=== PATIENT | male | born 1955 | race Caucasian/White ===

== ENCOUNTER 2016-06-01 15:51 | Emergency (ER) | payer OTHER ==
[2016-06-01] MEDS ORDERED: DIPH,PERTUS(ACELL)TETVAC-LF 0.5 ML VIAL IM ONE (16:05)
[2016-06-01 16:07] VITALS: BP 149/88; PULSE 84; RESP 18
--- NOTE | 2016-06-01 16:14 | ED ---
General Adult HPI - General Chief complaint: Wound/Laceration Stated complaint: finger lac-[facility] Time Seen by Provider: 06/01/16 16:04 Source: patient, RN notes reviewed Mode of arrival: EMS Limitations: no limitations - History of Present Illness Initial comments: Patient 60-year-old male who presents emergency room today with chief complaint of injury to the right hand occurred just prior to arrival. 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 States that his hand extending slipped going into Lathe that was spinning a piece of metal. States it is right index finger causing laceration. He doesn't pain locally to the right index finger. He states unsure of his tetanus status. Denies any other complaints or associated symptoms. Patient denies any recent fever, chills, shortness of breath, chest pain, back pain, abdominal pain, nausea or vomiting, numbness or tingling, dysuria or hematuria, constipation or diarrhea, headaches or visual changes, or any other complaints. - Related Data Home Medications Medication Instructions Recorded Confirmed Ibuprofen [Motrin] 400 mg PO Q6HR PRN 01/08/16 06/01/16 Previous Rx's Medication Instructions Recorded Cephalexin [Keflex] 500 mg PO Q12HR 5 Days 06/01/16 Allergies Allergy/AdvReac Type Severity Reaction Status Date / Time No Known Allergies Allergy Verified 06/01/16 16:07 Review of Systems ROS Statement: Those systems with pertinent positive or pertinent negative responses have been documented in the HPI. ROS Other: All systems not noted in ROS Statement are negative. Past Medical History Past Medical History: No Reported History History of Any Multi-Drug Resistant Organisms: None Reported Past Surgical History: Appendectomy, Cholecystectomy, Orthopedic Surgery, Tonsillectomy Past Psychological History: No Psychological Hx Reported Smoking Status: Current every day smoker Past Alcohol Use History: None Reported Past Drug Use History: None Reported General Exam - General Exam Comments Initial Comments: General: The patient is awake and alert, in no distress, and does not appear acutely ill. Neck: The neck is supple, there is no tenderness or JVD. Cardiovascular: There is a regular rate and rhythm. No murmur, rub or gallop is appreciated. Respiratory: Lungs are clear to auscultation, respirations are non-labored, breath sounds are equal. No wheezes, stridor, rales, or rhonchi. Musculoskeletal: No obvious deformity. Patient shows good range of motion. Patient does have a laceration over the volar aspect of the right index finger. Small superficial lacerations to the lateral aspect of the proximal fourth. Both measuring less than 1 cm. Sensation intact pulses equal bilaterally 2+. Neurological: A&O x 3. CN II-XII intact, There are no obvious motor or sensory deficits. Coordination appears grossly intact. Speech is normal. Skin: Skin is warm and dry and no rashes or lesions are noted. Psychiatric: Normal mood and affect. Limitations: no limitations Course Vital Signs 06/01/16 16:04 Pulse Rate 84 Respiratory 18 Rate Blood Pressure 149/88 O2 Sat by Pulse 96 Oximetry Procedures - Procedures Initial comment: Patient does have a 1 cm linear laceration volar aspect of the right index finger. No active bleeding. Digit was anesthetized locally with 1% lidocaine at the head of the metacarpal. Area was irrigated heavily under pressure with normal saline. A total of 3 sutures were placed. 5-0 nylon used. Patient does have 3 other small superficial lacerations all measuring less than 0.5 cm that did not require any suturing on the right index finger. Medical Decision Making - Medical Decision Making Patient's x-rays reviewed and shows no sign of fracture dislocation. Results were discussed with patient. Patient's tetanus updated here in the emergency room. Disposition Clinical Impression: Laceration, Finger contusion Disposition: HOME SELF-CARE Condition: Good Instructions: Laceration (ED) Additional Instructions: Please use antibiotic as prescribed follow-up with the employee health. Please return if any symptoms increase worsen or for any other concerns. Please do not submerge your hand. Running water over the top is okay. Please watch for any signs of infection which may include increased pain, swelling, redness, fever or chills. Please return to emergency room in 7-10 days have sutures removed. Prescriptions: Cephalexin [Keflex] 500 mg PO Q12HR 5 Days Time of Disposition: 16:39
--- NOTE | 2016-06-01 16:29 | XR ---
EXAMINATION TYPE: XR hand complete RT DATE OF EXAM: 06/01/2016 4:23 PM CLINICAL HISTORY: Left hand pain after laceration injury worse over second digit. TECHNIQUE: Frontal, lateral and oblique images of the right hand are obtained. COMPARISON: None. FINDINGS: Osseous structures are somewhat demineralized. There is no acute fracture/dislocation evid ent in the right hand. The joint spaces in the right hand appear within normal limits. There is mild soft tissue swelling in the second digit centered at the PIP joint. IMPRESSION: There is no acute fracture or dislocation in the right hand.
== END 2016-06-01 17:21 | disposition home or self-care (01) ==
LOC: EC 15:51
DX: S61.210A Laceration without foreign body of right index finger without damage to nail, initial encounter (principal); F17.200 Nicotine dependence, unspecified, uncomplicated; W31.82XA Contact with other commercial machinery, initial encounter; Y99.0 Civilian activity done for income or pay; Z23 Encounter for immunization
CPT/HCPCS: 12001; 90471; 90715; 99283

== ENCOUNTER 2019-02-08 15:02 | Inpatient (IN) | payer OTHER ==
[2019-02-08] MEDS ORDERED: SODIUM CHLORIDE 0.9% 500 ML 500 ML IV STA (15:26)
[2019-02-08 16:07] LABS: Basophils # (A) 0.1 k/uL (0-0.2); Basophils % (A) 0 %; Eosinophils % (A) 0 %; HCT 45.1 % (39.0-53.0); HGB 15.3 gm/dL (13.0-17.5); Lymphocytes # (A) 4.5 k/uL (1.0-4.8); Lymphocytes % (A) 29 %; MCHC 33.9 g/dL (31.0-37.0); MCV 97.4 fL (80.0-100.0); Mean Platelet Volume 5.4; Monocytes # (A) 1.4 k/uL (0-1.0); Monocytes % (A) 9 %; Neutrophils # (A) 9.3 k/uL (1.3-7.7); Neutrophils % (A) 60 %; Platelet Count 282 k/uL (150-450); RBC 4.63 m/uL (4.30-5.90); RDW 12.3 % (11.5-15.5); WBC 15.5 k/uL (3.8-10.6)
[2019-02-08 16:16] LABS: ALT 20 U/L (21-72); AST 25 U/L (17-59); Acetaminophen <10.0 ug/mL; African American GFR (CKD) >90 (>60 ml/min/1.73 sqM); Alcohol <10 mg/dL; Alkaline Phosphatase 54 U/L (38-126); Anion Gap 6 mmol/L; Blood Urea Nitrogen 12 mg/dL (9-20); Calcium 9.4 mg/dL (8.4-10.2); Carbon Dioxide 26 mmol/L (22-30); Chloride 108 mmol/L (98-107); Creatine Kinase 226 U/L (55-170); Glucose 86 mg/dL (74-99); Potassium 4.1 mmol/L (3.5-5.1); Salicylate <1.0 mg/dL; Sodium 140 mmol/L (137-145); Total Bilirubin 0.6 mg/dL (0.2-1.3); Total Protein 6.3 g/dL (6.3-8.2)
--- NOTE | 2019-02-08 16:18 | XR ---
EXAMINATION TYPE: XR chest 1V portable DATE OF EXAM: 02/08/2019 COMPARISON: Chest x-ray January 08, 2016 HISTORY: Drug overdose of Xanax. TECHNIQUE: Single AP portable frontal upright view of the chest is obtained. FINDINGS: There is diminish inspiration with mild central vascular congestion. The cardiac silhouet te size is mildly enlarged. No suspicious peripheral focal airspace opacity, pleural effusion, or pne umothorax. The osseous structures are intact. Overlying EKG leads are noted. IMPRESSION: Correlate for CHF exacerbation as there is new mild cardiomegaly and mild central vascul ar congestion thought present. Findings may be exaggerated by diminished inspiration on current study .
--- NOTE | 2019-02-08 16:36 | CT ---
EXAMINATION TYPE: CT brain cspine wo con DATE OF EXAM: 02/08/2019 COMPARISON: CT brain January 08, 2016 HISTORY: Trauma with overdose, neck pain after fall injury. CT DLP: 1389.1 mGycm. Automated Exposure Control for Dose Reduction was Utilized. TECHNIQUE: CT scan of the head and cervical spine are performed without contrast. FINDINGS: There is no acute intracranial hemorrhage, mass effect, or midline shift identified. The ventricles and sulci are within normal limits in size for patient's age. The globes are intact and the visualized sinuses are clear. The calvarium is intact. Cervical spine is visualized in its entirety from C1 through upper thoracic levels and demonstrates l oss of normal cervical curvature without evidence of acute fracture or dislocation. Prevertebral sof t tissue appears within normal limits. The C1-C2 articulation is within normal limits on the coronal images. Vertebral body heights are maintained. Moderate disc space narrowing C5-C6 level. Mild disc space narrowing C4-C5 and C6-C7 levels. Posterior spur effaces anterior thecal sac C6-C7 level sagit diann image 37 and axial image 69 left paracentral location. Review of axial images shows moderate bila teral neural foraminal narrowing C4-C5 level due to uncovertebral and facet spurring and moderate kathy rowing at C6-C7 level on the left due to marginal spurring. Lung apices show no pneumothorax. IMPRESSION: 1. There is no acute fracture or dislocation evident in the cervical spine. 2. No acute intracranial hemorrhage or midline shift is seen.
--- NOTE | 2019-02-08 17:00 | ED ---
Overdose HPI - General Chief Complaint: Overdose Stated Complaint: Mental health Time Seen by Provider: 02/08/19 15:02 Source: patient, family, EMS, RN notes reviewed Mode of arrival: EMS Limitations: no limitations - History of Present Illness Initial Comments: This is a 64-year-old male who presents by EMS to being found be unresponsive at home by family. He apparently fallen out of bed. Night. He was found to be in possession of Xanax. He did admit to taking approximate 20 0.5 mg Xanax and attempt to kill himself. He's been depressed and despondent since his this past year. No prior history or attempts made. He denies any alcohol other than occasional alcohol denies any other drugs. MD Complaint: intentional overdose - Related Data Home Medications Medication Instructions Recorded Confirmed Escitalopram [Lexapro] 10 mg PO DAILY 02/08/19 02/08/19 Allergies Allergy/AdvReac Type Severity Reaction Status Date / Time No Known Allergies Allergy Verified 02/08/19 15:37 Review of Systems ROS Statement: Those systems with pertinent positive or pertinent negative responses have been documented in the HPI. ROS Other: All systems not noted in ROS Statement are negative. Past Medical History Past Medical History: No Reported History History of Any Multi-Drug Resistant Organisms: None Reported Past Surgical History: Appendectomy, Cholecystectomy, Orthopedic Surgery, Ton sillectomy Past Psychological History: Depression Smoking Status: Current every day smoker Past Alcohol Use History: None Reported Past Drug Use History: None Reported General Exam - General Exam Comments Initial Comments: This a well-developed lethargic male was awake alert oriented 3 Limitations: no limitations General appearance: alert, lethargic Head exam: Present: normocephalic, normal inspection, other (Ecchymosis seen over the right scalp and some evidence of abrasion over the right forehead above the eyebrow. No step-off or crepitation) Eye exam: Present: normal appearance, PERRL, EOMI. Absent: scleral icterus, co njunctival injection, periorbital swelling ENT exam: Present: normal exam, mucous membranes moist Neck exam: Present: normal inspection. Absent: tenderness, meningismus, lymphadenopathy Respiratory exam: Present: normal lung sounds bilaterally. Absent: respiratory distress, wheezes, rales, rhonchi, stridor Cardiovascular Exam: Present: regular rate, normal rhythm, normal heart sounds. Absent: systolic murmur, diastolic murmur, rubs, gallop, clicks GI/Abdominal exam: Present: soft, normal bowel sounds. Absent: distended, tenderness, guarding, rebound, rigid Extremities exam: Present: normal inspection, full ROM, normal capillary refill. Absent: tenderness, pedal edema, joint swelling, calf tenderness Back exam: Present: normal inspection Neurological exam: Present: alert, oriented X3, CN II-XII intact Psychiatric exam: Present: depressed, flat affect, suicidal ideation Skin exam: Present: warm, dry, intact, normal color. Absent: rash Course Vital Signs 02/08/19 02/08/19 02/08/19 15:17 15:30 16:00 Temperature 98.9 F Pulse Rate 86 82 86 Respiratory 16 16 16 Rate Blood Pressure 132/79 103/68 116/71 O2 Sat by Pulse 99 97 98 Oximetry 02/08/19 17:00 Temperature Pulse Rate 85 Respiratory 14 Rate Blood Pressure 108/69 O2 Sat by Pulse 97 Oximetry - Reevaluation(s) Reevaluation #1: 02/08/19 17:05 The patient continues to be lethargic though he does respond and can converse without any difficulty he demonstrates no evidence of respiratory depression. Medical Decision Making - Medical Decision Making I did discuss findings with patient and family members as well as with Dr. Long patient be admitted for medical evaluation and clearance with psychiatric consultation tomorrow. - Lab Data Result diagrams: 02/08/19 15:45 02/08/19 15:45 Lab Results 02/08/19 02/08/19 02/08/19 Range/Units 15:45 15:45 15:45 WBC 15.5 H (3.8-10.6) k/uL RBC 4.63 (4.30-5.90) m/uL Hgb 15.3 (13.0-17.5) gm/dL Hct 45.1 (39.0-53.0) % MCV 97.4 (80.0-100.0) fL MCH 33.0 (25.0-35.0) pg MCHC 33.9 (31.0-37.0) g/dL RDW 12.3 (11.5-15.5) % Plt Count 282 (150-450) k/uL Neutrophils % 60 % Lymphocytes % 29 % Monocytes % 9 % Eosinophils % 0 % Basophils % 0 % Neutrophils # 9.3 H (1.3-7.7) k/uL Lymphocytes # 4.5 (1.0-4.8) k/uL Monocytes # 1.4 H (0-1.0) k/uL Eosinophils # 0.0 (0-0.7) k/uL Basophils # 0.1 (0-0.2) k/uL Sodium 140 (137-145) mmol/L Potassium 4.1 (3.5-5.1) mmol/L Chloride 108 H (98-107) mmol/L Carbon Dioxide 26 (22-30) mmol/L Anion Gap 6 mmol/L BUN 12 (9-20) mg/dL Creatinine 0.87 (0.66-1.25) mg/dL Est GFR (CKD-EPI)AfAm >90 (>60 ml/min/1.73 sqM) Est GFR (CKD-EPI)NonAf >90 (>60 ml/min/1.73 sqM) Glucose 86 (74-99) mg/dL Plasma Lactic Acid Kam 1.3 (0.7-2.0) mmol/L Calcium 9.4 (8.4-10.2) mg/dL Total Bilirubin 0.6 (0.2-1.3) mg/dL AST 25 (17-59) U/L ALT 20 L (21-72) U/L Alkaline Phosphatase 54 (38-126) U/L Creatine Kinase 226 H (55-170) U/L Troponin I (0.000-0.034) ng/mL Total Protein 6.3 (6.3-8.2) g/dL Albumin 4.0 (3.5-5.0) g/dL Lipase 48 (23-300) U/L Salicylates <1.0 mg/dL Acetaminophen <10.0 ug/mL Serum Alcohol <10 mg/dL 02/08/19 Range/Units 15:45 WBC (3.8-10.6) k/uL RBC (4.30-5.90) m/uL Hgb (13.0-17.5) gm/dL Hct (39.0-53.0) % MCV (80.0-100.0) fL MCH (25.0-35.0) pg MCHC (31.0-37.0) g/dL RDW (11.5-15.5) % Plt Count (150-450) k/uL Neutrophils % % Lymphocytes % % Monocytes % % Eosinophils % % Basophils % % Neutrophils # (1.3-7.7) k/uL Lymphocytes # (1.0-4.8) k/uL Monocytes # (0-1.0) k/uL Eosinophils # (0-0.7) k/uL Basophils # (0-0.2) k/uL Sodium (137-145) mmol/L Potassium (3.5-5.1) mmol/L Chloride (98-107) mmol/L Carbon Dioxide (22-30) mmol/L Anion Gap mmol/L BUN (9-20) mg/dL Creatinine (0.66-1.25) mg/dL Est GFR (CKD-EPI)AfAm (>60 ml/min/1.73 sqM) Est GFR (CKD-EPI)NonAf (>60 ml/min/1.73 sqM) Glucose (74-99) mg/dL Plasma Lactic Acid Kam (0.7-2.0) mmol/L Calcium (8.4-10.2) mg/dL Total Bilirubin (0.2-1.3) mg/dL AST (17-59) U/L ALT (21-72) U/L Alkaline Phosphatase (38-126) U/L Creatine Kinase (55-170) U/L Troponin I <0.012 (0.000-0.034) ng/mL Total Protein (6.3-8.2) g/dL Albumin (3.5-5.0) g/dL Lipase (23-300) U/L Salicylates mg/dL Acetaminophen ug/mL Serum Alcohol mg/dL - EKG Data -: EKG Interpreted by Me EKG shows normal: sinus rhythm, axis, intervals, QRS complexes, ST-T waves (Normal sinus rhythm 83 AR interval 156 QRS duration 96 QT/QTC 374/[address]-T wave changes) Rate: normal - Radiology Data Radiology results: report reviewed (I did review the imaging and reports no acute findings on the CAT scans x-ray does show evidence of increased pulmonary vascular markings however this is likely tactical.), image reviewed Critical Care Time Critical Care Time: Yes Critical Care Time: 35 is critical care time which includes initial presentation with history physical labs x-rays multiple reevaluation the patient discussed with family me michelle admission orders and documentation of the above Disposition Clinical Impression: Drug overdose, Depression, Suicide attempt Disposition: ADMITTED IP TO THIS HOSP Condition: Fair Referrals: Javid Long DO [Primary Care Provider] - 1-2 days
[2019-02-08] MEDS ORDERED: NALOXONE 0.4 MG/ML 1 ML VIAL IV PRN (17:08)
[2019-02-08 17:28] LABS: Cocaine Screen,Urine Not Detected (NotDetected); Phencyclidine Screen,Urine Not Detected (NotDetected); Urn Cannabinoid Scrn Not Detected (NotDetected)
[2019-02-08 17:29] LABS: Amphetamine Screen,Urine Not Detected (NotDetected); Barbiturate Screen,Urine Not Detected (NotDetected); Benzodiazepines Screen,Urine Detected (NotDetected); Methadone Screen, Urine Not Detected (NotDetected); Opiate Screen,Urine Not Detected (NotDetected); Oxycodone Screen, Urine Not Detected (NotDetected); Tricyclic Antidepressant,Urine Not Detected (NotDetected)
[2019-02-08] MEDS: SODIUM CHLORIDE 0.9% 1,000 ML IV SCH (17:43)
[2019-02-09 01:18] LABS: Potassium 3.6 mmol/L (3.5-5.1)
[2019-02-09] MEDS: SODIUM CHLORIDE 0.9% 1,000 ML IV SCH (05:09)
--- NOTE | 2019-02-09 13:37 | P.HPIM ---
History of Present Illness H&P Date: 02/09/19 Chief Complaint: Unresponsive, brought in by EMS This is a 63-year-old gentleman with history of depression, his recently , current nicotine dependence, occasional alcohol use, found unresponsive in home by family and brought to the ER by EMS. He apparently had fallen out of bed, admitted to taking 20 Xanax, from his 's prescriptions, attempting to kill himself. States"I just want to go". Reports he had not been going to grief counseling and had not been taking his antidepressant as prescribed by his PCP. No history of prior suicide attempts . Suicide precautions initiated, psychiatry consulted. Received IV fluid hydration . Chest x-ray reporting new mild cardiomegaly, mild central vascular congestion possibly exaggerated by diminished inspiration. Head/cervical spine CT reported no acute fracture or dislocation evident in the cervical spine, no acute intracranial hemorrhage or midline shift, moderate bilateral neural foraminal narrowing C4-C5, C6-C7. EKG reporting normal sinus rhythm .Telemetry sinus rhythm with PVCs, bigeminy, trigeminy. Magnesium 2, potassium 4.1, creatinine 0.87, creatinine kinase 226. Toxicology screen reporting benzodiazepines, serum alcohol less than 10, acetaminophen less than 10, salicylates less than 1. Vital signs stable, required 2 L nasal cannula O2 to maintain O2 sats in the high 90s-weaned to room air. Review of Systems ROS Statement: Those systems with pertinent positive or pertinent negative responses have been documented in the HPI. ROS Other: All systems not noted in ROS Statement are negative. Past Medical History Past Medical History: No Reported History History of Any Multi-Drug Resistant Organisms: None Reported Past Surgical History: Appendectomy, Cholecystectomy, Orthopedic Surgery, Tonsillectomy Past Psychological History: Depression Smoking Status: Current every day smoker Past Alcohol Use History: None Reported Additional Past Alcohol Use History / Comment(s): May drink a beer while cutting the lawn Past Drug Use History: None Reported - Past Family History Father Family Medical History: Diabetes Mellitus Additional Family Medical History / Comment(s): heart disease Mother Additional Family Medical History / Comment(s): Heart disease Medications and Allergies Home Medications Medication Instructions Recorded Confirmed Type Escitalopram [Lexapro] 10 mg PO DAILY 02/08/19 02/08/19 History Allergies Allergy/AdvReac Type Severity Reaction Status Date / Time No Known Allergies Allergy Verified 02/08/19 15:37 Physical Exam Vitals: Vital Signs Temp Pulse Pulse Resp BP BP Pulse Ox 02/09/19 12:00 74 16 103/61 95 02/09/19 08:00 98.5 F 73 16 101/55 94 L 02/09/19 03:54 98.0 F 81 12 86/47 97 02/09/19 00:59 98.7 F 68 14 98/51 98 02/08/19 20:04 98.5 F 82 14 118/59 97 02/08/19 18:36 80 14 02/08/19 18:12 98.1 F 80 16 100/56 100 02/08/19 17:53 98.0 F 85 20 102/61 100 02/08/19 17:00 85 14 108/69 97 02/08/19 16:00 86 16 116/71 98 02/08/19 15:30 82 16 103/68 97 02/08/19 15:17 98.9 F 86 16 132/79 99 Intake and Output 02/08/19 02/09/19 02/09/19 22:59 06:59 14:59 Intake Total 236 Output Total 300 425 Balance -300 -189 Intake: Oral 236 Output: Urine 300 425 Other: Voiding Method Toilet Toilet Toilet Urinal Urinal Urinal # Voids 0 1 Weight 68.039 kg 70 kg PHYSICAL EXAM: VITAL SIGNS: As above GENERAL: Lying in bed, alert and oriented 3, with strong, teary-eyed HEENT: Conjunctivae normal. eyes normal. NECK: No JVD. No thyroid enlargement. No LNs CARDIOVASCULAR: S1, S2 regular.. No murmur RESPIRATION: Breath sounds diminished in the bases. No rhonchi or crackles. No bronchial breathing. ABDOMEN: Soft, nontender . No guarding. no masses palpable. No ascites, No hepatosplenomegaly.Bowel sounds heard. LEGS: No edema. no swelling PSYCHIATRY: Alert and oriented X3, mood and affect normal. NERVOUS SYSTEM: Cranial N 2-12 grossly normal. Moves all 4 limbs. Diffuse weakness No focal deficits. Strength and sensation grossly intact.. Skin: no rash Lymphatic system. No LN neck axilla or groin. Results CBC & Chem 7: 02/08/19 15:45 02/09/19 00:58 Labs: Abnormal Lab Results - Last 24 Hours (Table) 02/08/19 02/08/19 02/08/19 Range/Units 15:45 15:45 16:55 WBC 15.5 H (3.8-10.6) k/uL Neutrophils # 9.3 H (1.3-7.7) k/uL Monocytes # 1.4 H (0-1.0) k/uL Chloride 108 H (98-107) mmol/L ALT 20 L (21-72) U/L Creatine Kinase 226 H (55-170) U/L U Benzodiazepines Scrn Detected H (NotDetected) Thrombosis Risk Factor Assmnt - Choose All That Apply Any of the Below Risk Factors Present?: No Other Risk Factors: Yes Each Risk Factor Represents 2 Points: Age 61-74 years Other congenital or acquired thrombophilia - If yes, enter type in comment: No Thrombosis Risk Factor Assessment Total Risk Factor Score: 2 Thrombosis Risk Factor Assessment Level: Low Risk Assessment and Plan Assessment: -Intentional drug overdose, suicidal -Depression -Ongoing nicotine dependence -Occasional alcohol use Plan: Continue on current medication regimen ,monitoring and symptomatic treatment. Continue with suicide precautions/sitter. Maintain IV fluid hydration. Psychiatry consult in place. Anticipate patient being discharged to inpatient mental health later today. Further recommendations to follow. The impression and plan of care has been dictated as directed. : I performed a history and examination of this patient, discussed the same with the dictator. I agree with the dictator's note ,documented as a scribe. Any additional findings or plans will be noted.
[2019-02-09 15:01] VITALS: BMI 22.8
--- NOTE | 2019-02-09 15:40 | P.CN ---
Psychiatric Consult - . Consult date: 02/09/19 Consult:: 02/09/19 15:30 IDENTIFYING DATA: This patient is a 63-year-old male who has 3 kids and 6 grandchildren. 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 HISTORY OF PRESENT ILLNESS: The patient presented to the ER after a suicide attempt where patient consumed approximately 20 tablets of Xanax at 0.5 mg. Patient was found to be unresponsive by patient's son as he fell out of bed. Patient was in the possession of his 's medications. Patient admitted to wanting to killing himself and also stated that he has been depressed for months since his in March of this past year. 's birthday was this past Wednesday. Patient claimed that he was not taking his Lexapro which was prescribed by his doctor and claims that he does not "believe in medications". As per family, states that patient has been isolating himself in claiming that he is a burden to them and has shown a decline in his functioning since March. Family also stated that patient and his were "inseparable" and she from stage IV COPD. Patient had a depressed affect, was tearful and claimed that "I'd be better off ". Patient also claimed that he's been crying several times at work and finding it very difficult to live. He admits to poor sleep and poor appetite along with poor concentration. At this time patient admits to suicidal ideations however has no specific plan. Patient denies any homicidal ideations. Patient denies any auditory, visual hallucinations and denies any paranoia or delusions. Patient denies any substance use and claims to drink occasional alcohol. PAST PSYCHIATRIC HISTORY: Patient admits to history of depression, has never seen a psychiatrist before his never been admitted to a psych facility and iveth es any previous suicide attempts.. PAST MEDICAL HISTORY: denies. ALLERGIES: as per EMR. CHEMICAL DEPENDENCY HISTORY: as per HPI. FAMILY PSYCHIATRIC/SUBSTANCE USE HISTORY: Claims his sisters are depressed SOCIAL HISTORY: Patient was born and raised in [facility] and was for 43 years, is now since March 2018. He has 3 kids and 6 grandkids. 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 MENTAL STATUS EXAM: General Appearance: Patient appears to be stated age is alert, actable and attempts to cooperate. Patient has a depressed affect and soft tone of voice. Behavior: Patient is calmly lying in bed without any agitated behavior. Speech: Patient's speech is fluent and nonpressured. Soft tone Mood/Affect: Patient reports their mood is "depressed", affect is congruent Suicidality/Homicidality: Admits to suicidal ideations. Denies any homicidal ideations. Perceptions: Patient denies any auditory or visual hallucinations. Though content/process: There is no evidence of any delusional thought content and thought process is linear and goal-directed. Depressive content, preoccupied with 's . Memory and concentration: AOX3, grossly intact for the purposes of this session. Can spell "WORLD" backwards Judgment and insight: Poor, impulsive IMPRESSIONS: Major depressive disorder, severe PLAN: -At this time patient does meet criteria for inpatient psychiatric admission. -Would recommend the following medication changes/additions: We'll hold off on antidepressant until patient gets admitted to mental health unit. -Continue 1:1 sitter for safety -Cannot leave AMA at this time. Patient will need a petition and certification if attempting to leave AMA. -When medically stable, patient is eligible for transfer to a psych bed when available. -[employer] spoke with patient and family about the process for mental health transfer. -Psychiatry will sign off at this point 02/09/19 15:30
[2019-02-09] MEDS: PANTOPRAZOLE 40 MG/10 ML VIAL IVP SCH (17:22)
[2019-02-10 04:30] VITALS: RESP 16
[2019-02-10] MEDS: SODIUM CHLORIDE 0.9% 1,000 ML IV SCH ×3 (04:30→16:07)
--- NOTE | 2019-02-10 08:36 | P.DS ---
Providers Date of admission: 02/08/19 17:08 Expected date of discharge: 02/10/19 Attending physician: Javid Long Consults: 02/08/19 17:08 Consult Physician Routine Consulting Provider: Jefry Oakes Consult Reason/Comments: Depression, suicide attempt Do you want consulting provider notified?: Yes, Notify in am Primary care physician: Javid Long Hospital Course: Final Diagnoses: -Intentional drug overdose, suicidal -Depression, severe -Ongoing nicotine dependence -Occasional alcohol use Hospital course:This is a 63-year-old gentleman with history of depression, his recently , current nicotine dependence, occasional alcohol use, found unresponsive in home by family and brought to the ER by EMS. He apparently had fallen out of bed, admitted to taking 20 Xanax, from his 's prescriptions, attempting to kill himself. States"I just want to go". Reports he had not been going to grief counseling and had not been taking his antidepressant as prescribed by his PCP. No history of prior suicide attempts . Suicide precautions initiated, psychiatry consulted. Received IV fluid hydration . Chest x-ray reporting new mild cardiomegaly, mild central vascular congestion possibly exaggerated by diminished inspiration. Head/cervical spine CT reported no acute fracture or dislocation evident in the cervical spine, no acute intracranial hemorrhage or midline shift, moderate bilateral neural foraminal narrowing C4-C5, C6-C7. EKG reporting normal sinus rhythm .Telemetry sinus rhythm with PVCs, bigeminy, trigeminy. Magnesium 2, potassium 4.1, c reatinine 0.87, creatinine kinase 226. Toxicology screen reporting benzodiazepines, serum alcohol less than 10, acetaminophen less than 10, salicylates less than 1. Vital signs stable, required 2 L nasal cannula O2 to maintain O2 sats in the high 90s-weaned to room air. Ecchymosis around the right eye . Denies any visual deficits, no lightheadedness, no dizziness, no focal deficits . Denies chest pain, palpitations or shortness of breath. VSS. Significant clinical improvement. Suicide precautions maintained, sitter at bedside. Evaluated by psychiatry, and patient has been accepted for discharge to mental health unit. Patient is being discharged to mental health unit in a stable condition with guarded prognosis. GENERAL: Alert and oriented 3, no acute distress HEENT: Conjunctivae normal. eyes normal. CARDIOVASCULAR: S1, S2 regular. No murmur RESPIRATION: Breath sounds diminished in the bases. No rhonchi or crackles. No wheezing. ABDOMEN: Soft, nontender . No guarding. no masses palpable. Bowel sounds heard. NERVOUS SYSTEM: No focal deficits. The impression and plan of care has been dictated as directed. : I performed a history and examination of this patient, discussed the same with the dictator. I agree with the dictator's note ,documented as a scribe. Any additional findings or plans will be noted. Patient Condition at Discharge: Stable Plan - Discharge Summary Discharge Rx Participant: No New Discharge Prescriptions: New Pantoprazole Sodium [Protonix] 40 mg PO DAILY #30 tablet. Continue Escitalopram [Lexapro] 10 mg PO DAILY Discharge Medication List Escitalopram [Lexapro] 10 mg PO DAILY 02/08/19 [History] Pantoprazole Sodium [Protonix] 40 mg PO DAILY #30 tablet. 02/10/19 [Rx] Follow up Appointment(s)/Referral(s): Javid Long DO [Primary Care Provider] - 1 Week (After DC from mental health unit) Discharge Disposition: TRANSFER TO PSYCH HOSP/UNIT
[2019-02-10] MEDS: PANTOPRAZOLE 40 MG/10 ML VIAL IVP SCH (09:08)
[2019-02-10 12:04] VITALS: PULSE 71
[2019-02-10 15:59] VITALS: BP 132/83; TEMP 97.4
[2019-02-11] MEDS ORDERED: PANTOPRAZOLE 40 MG TABLET PO SCH (09:00)
== END 2019-02-10 19:54 | DRG 918 ==
LOC: EC 15:02 → 3SCARD 17:08 → 4MS4W 02-10 15:35
PROVIDERS: ADMIT Family Medicine; ATTEND Family Medicine
DX: T42.4X2A Poisoning by benzodiazepines, intentional self-harm, initial encounter (principal); F17.210 Nicotine dependence, cigarettes, uncomplicated; F32.9 Major depressive disorder, single episode, unspecified; I49.3 Ventricular premature depolarization; S00.11XA Contusion of right eyelid and periocular area, initial encounter; W06.XXXA Fall from bed, initial encounter; Z79.899 Other long term (current) drug therapy; Z83.3 Family history of diabetes mellitus; Z63.4 Disappearance and death of family member; Z60.2 Problems related to living alone; Z90.49 Acquired absence of other specified parts of digestive tract; Z82.49 Family history of ischemic heart disease and other diseases of the circulatory system
CPT/HCPCS: 36415; 70450; 71045; 72125; 80053; 80306; 80320; 80329; 82550; 83520; 83605; 83690; 83735; 84132; 84484; 85025; 93005; 94760; 99291

== ENCOUNTER → 2019-12-25 | Outpatient (CLI) | payer OTHER ==
[~2019-12-25] MED LIST: DOBUTamine DRIP for NUC MED 500 MG in DEXTROSE/WATER 1 250ML.BAG IV ONE
--- NOTE | 2019-12-25 13:20 | P.STRESS ---
- Stress Test Note Stress Test Results/Findings: Exam Performed: dobutamine stress echo Exam Date: 12/25/19 Reason for Exam: Chest pain Height: 5 ft 7 in Weight: 80 kg Protocol: Dobutamine stress echo Stage: 2 Duration of Exercise: 6.45 Resting Heart Rate: 77 Resting Blood Pressure: 126/78 Maximum Achieved Heart Rate: 138 Maximum Achieved Blood Pressure: 157/70 85% PMHR: 133 100% PMHR: 157 METS: Technologist Comment: Stress Test Results/Findings: Patient underwent a dobutamine stress echo for 6 minutes and 45 seconds with a total of 30 mcg/kilogram per minute. Patient reached maximum heart rate of 138 bpm representing 88% predicted maximum heart rate. Stress EKG portion: Baseline EKG shows normal sinus rhythm with a rate of 77 bpm, normal axis, nonspecific T-wave flattening in aVL. There are PVCs noted throughout the stress portion. At peak stress there is nonspecific [address] depressions in the inferolateral leads. This improves with rest. Stress echo portion: 2-D echo images were obtained from the parasternal long, personal short, apical 4 and apical 2 chamber views. Images were obtained at rest, low-dose, peak and recovery. At rest patient has an ejection fraction of 55% without wall motion abnormalities. With stress patient has improvement in contractility, decrease in left ventricular mention without any wall motion abnormalities. Conclusions: 1. Normal EKG and echo response to dobutamine stress. 2. Occasional PVCs noted throughout exam.
== END | disposition home or self-care (01) ==
LOC: RADNMMAIN 09:40
PROVIDERS: ATTEND Family Medicine
DX: R00.0 Tachycardia, unspecified (principal)
CPT/HCPCS: 93351; J1250

== ENCOUNTER → 2022-10-21 | Outpatient (CLI) | payer MEDICARE ==
--- NOTE | 2022-10-21 14:48 | XR ---
EXAMINATION TYPE: XR chest 2V DATE OF EXAM: 10/21/2022 12:44 PM COMPARISON: Chest radiographs from 02/08/2019 TECHNIQUE: XR chest 2V Frontal and lateral views of the chest. CLINICAL INDICATION:Male, 67 years old with history of R05.9; FINDINGS: Lungs/Pleura: There is no evidence of pleural effusion, focal consolidation, or pneumothorax. Pulmonary vascularity: Unremarkable. Heart/mediastinum: Cardiomediastinal silhouette is unremarkable. Musculoskeletal: No acute osseous pathology. IMPRESSION: No acute cardiopulmonary disease/process.
== END | disposition home or self-care (01) ==
LOC: RADXRMAIN 12:32
PROVIDERS: ATTEND Family Medicine
DX: R05.9 Cough, unspecified (principal); R06.02 Shortness of breath; R09.89 Other specified symptoms and signs involving the circulatory and respiratory systems
CPT/HCPCS: 71046